=== PATIENT | female | born 1985 | race Caucasian/White ===

== ENCOUNTER 2018-06-14 17:36 | Inpatient (IN) | payer MEDICAID ==
[~2018-06-14] VITALS: Ht 162.6 cm; Wt 86.0 kg
[2018-06-14 17:54] VITALS: Ht 162.6 cm; Wt 86.0 kg
[2018-06-14 17:55] VITALS: BP 132/88; PULSE 113; RESP 20
[2018-06-14] MEDS ORDERED: PREN1TAB13 PO (17:57)
--- NOTE | 2018-06-14 18:01 | TRIAGE ---
OB Triage Datetime Report Generated by CPN: 06/14/2018 18:01 Datetime: 06/14/2018 17:45 Time of Arrival: 06/14/2018 17:30 EGA: 36.5 Arrived By: Ambulatory Arrived From: Home Chief Complaint: SROM AT 1700 Movement: Present Contractions: Regular Contractions: 2-5 Rupture of Membranes: Ruptured Vaginal Bleeding: None Vaginal Discharge: Present Recent Sexual Intercouse: Denies Abdominal Trauma: Not Applicable Patient Complaints: Contractions Time Provider Notified: 06/14/2018 17:45 Provider Notified: DR MEJIA Initial Plan: EFM,CALL DR CORREIA Datetime: 06/14/2018 17:44 Maternal Assessment Level of Consciousness: Fully Conscious DTR's/Clonus: DTRs 2+ Headache: Denies Blurred Vision: No Nausea/Vomiting: Denies RUQ Epigastric Pain: Denies Facial Edema: None Labor Evaluation Frequency: 2-5 Monitor Mode: External Quality: Moderate Pattern: Normal: <= 5 Contractions in 10 Minutes Resting Tone [place]: Relaxed Heart Rate FHR Baseline Rate: 145 Monitor Mode: External US FHR Baseline Changes: No Baseline Change Variability: Moderate 6-25 bpm Accelerations: 15X15 Decelerations: None Category: Category I Pain Assessment Pain Scale: 3 Pain Presence: Intermittent Pain Type: Contraction Pain Location: Abdomen Pain Goal: 4 Vaginal Exam Dilatation (cms): 2.0 Effacement (%): 40 Membrane Status: Ruptured Membranes Rupture Method: Spontaneous Amniotic Fluid Color: Clear Amniotic Fluid Amount: Large Amniotic Fluid Odor: None Vaginal Bleeding: None Cervix, Consistency: Moderate Cervix, Position: Midposition Presentation 'A': Cephalic Datetime: 06/14/2018 17:43 Maternal Assessment Level of Consciousness: Fully Conscious DTR's/Clonus: DTRs 2+; No Clonus Headache: Denies Blurred Vision: No Respiratory Effort: Unlabored; Regular Rhythm; Equal Expansion Breath Sounds, Left: Clear and Equal Breath Sounds, Right: Clear and Equal Nausea/Vomiting: Denies RUQ Epigastric Pain: Denies Facial Edema: None Temperature Route: Axillary Fall Risk Assessment History of Falling: (0) No Secondary Diagnosis: (0) No Ambulatory Aid: (0) Bedrest/Nurse Assist IV Therapy: (0) No Gait: (0) Normal/Bedrest/Immobile Mental Status: (0) Oriented to Own Ability Fall Score: 0 Fall Risk Score Definition: No Risk: No action required
[2018-06-14] MEDS ORDERED: LACTATED RINGER'S 1,000 ML IV SCH (18:45)
[2018-06-14] MEDS ORDERED: MISOPROSTOL 200 MCG TAB PR PRN (19:00)
[2018-06-14] MEDS ORDERED: CARBOPROST 250 MCG INJ IM PRN (19:00)
[2018-06-14] MEDS ORDERED: OXYTOCIN 30 UNITS/LR 500 ML IV SCH ×3 (19:00)
[2018-06-14] MEDS ORDERED: AMPICILLIN 2 GM/NS (PMX) 100 ML IV ONE (19:00)
[2018-06-14] MEDS ORDERED: BUTORPHANOL 1 MG INJ IV PRN (19:00)
[2018-06-14] MEDS ORDERED: BUTORPHANOL 2 MG INJ IV PRN (19:00)
[2018-06-14] MEDS ORDERED: OXYTOCIN 30 UNITS/LR 500 ML IV PRN (19:00)
[2018-06-14] MEDS ORDERED: LIDOCAINE 1% (MPF) 30 ML INJ INJ PRN (19:00)
[2018-06-14] MEDS ORDERED: METHYLERGONOVINE 0.2 MG INJ IM PRN (19:00)
--- NOTE | 2018-06-14 19:05 | HP ---
Date/Time of Note Date/Time of Note DATE: 06/14/18 TIME: 19:00 OB - History Hx of Present Free Text/Dictation 32-year-old female 2 para 1 at 36 weeks and 5 days gestation admitted complaining of a spontaneous rupture of membrane few hours Chief Complaint: Spontaneous rupture of membrane Estimated Due Date: Jul 07, 2018 : 2 Para: 1 Care: Good Care Ultrasounds: Normal mid trimester US Obstetrical Complications: None Medical Complications: None Past Family/Social History * Past Medical, Surgical, Family and Obstetric Histories reviewed from chart. OB Admission Exam Vital Signs Vital Signs Vital Signs Date Temp Pulse Resp B/P (MAP) Pulse Ox O2 O2 Flow FiO2 Time Delivery Rate 06/14/18 98.5 113 20 132/88 Room Air 17:55 (103) Physical Exam HEENT: WNL Heart: Rhythm Normal Lungs: Clear, Equal Abdomen: WNL Extremities: Normal Reflexes: Normal Cervical Dilatation: 2cm Effacement: 50% Station: -2 Membranes: Ruptured Amniotic Fluid: Clear Heart Rate: 140's Accelerations: Accelerations Present Decelerations: No Decelerations Varibility: Marked Contractions on Admission: < 5 Minutes Apart Date/Time Contractions Began: 06/14/2018 1700 Frequency of Contractions: q3=4 min Duration: >50 seconds Intensity: Mild OB Assessment/Plan Reason for admission: rupture of membranes Other Assessment: PSROM at 36.5 weeks Other plan: IV Abs for unknown GBS start Pitocin augmentation of the labor Obtain estimation of weight MANDA AGUILAR MD Jun 14, 2018 19:05
[2018-06-14] MEDS ORDERED: MINERAL OIL LIGHT 10 ML VIAL TOP ONE (22:30)
[2018-06-14] MEDS ORDERED: AMPICILLIN 1 GM/NS (PMX) 50 ML IV SCH (23:00)
--- NOTE | 2018-06-14 23:04 | LDN ---
Date/Time of Note Date/Time of Note DATE: 06/14/18 TIME: 23:00 Delivery Summary Vacuum extraction of a viable over intact perineum Vacuum extraction was performed because of prolonged bradycardic episode Weeks of Gestation 36.5 Assisted Vaginal Delivery: Vacuum Placenta Delivered: Spontaneously, Intact & Complete Meconium: none Episiotomy: No Perineal laceration: 1 Laceration repair: First-degree perineal laceration was repaired in layers using 2-0 chromic on a CT1 needle Anesthesia type: Epidural Estimated blood loss: 300 Sponge & Needle done & correct: Yes All needle counts correct: Yes Any foreign bodies felt in the: No Delivery Information Sex Sex: male Apgars 1 Minute: 8 5 Minute: 9 Suctioning Nose & mouth suctioned at adrián: Yes Delee suction performed: No Umbilical Cord Umbilical cord with: 3 Vessels Cord presentations: nuchal cord Nuchal cord present X: 2 Cord Blood was obtained: Yes Mother & Baby Disposition Disposition Mom & Baby to Maternity; Good: Yes (Mother and baby were recovered in good condition) Mom transferred to: Other (Maternity) Baby to NICU: No MANDA AGUILAR MD Jun 14, 2018 23:04
[2018-06-14] MEDS ORDERED: KETOROLAC 30 MG INJ IV ONE (23:12)
[2018-06-15] MEDS ORDERED: AMPICILLIN 1 GM/NS (PMX) 50 ML IV SCH (01:00)
[2018-06-15] MEDS: LACTATED RINGER'S 1,000 ML IV* SCH ×3 (01:07→22:54)
[2018-06-15 01:25] VITALS: BP 111/71; PULSE 96; RESP 18
[2018-06-15] MEDS ORDERED: DIBUCAINE 1% 30 GM OINT TOP PRN (01:30)
[2018-06-15] MEDS ORDERED: HYDROCODONE/APAP (5/325) TAB PO PRN ×2 (01:30)
[2018-06-15] MEDS ORDERED: OXYTOCIN 30 UNITS/LR 500 ML IV PRN (01:30)
[2018-06-15] MEDS ORDERED: ZOLPIDEM 5 MG TAB PO PRN (01:30)
[2018-06-15] MEDS ORDERED: CARBOPROST 250 MCG INJ IM PRN (01:30)
[2018-06-15] MEDS ORDERED: WITCH HAZEL/GLYCERIN PAD PR PRN (01:30)
[2018-06-15] MEDS ORDERED: BENZOCAINE 20% 56 ML SPRAY TOP PRN (01:30)
[2018-06-15] MEDS ORDERED: METHYLERGONOVINE 0.2 MG INJ IM PRN (01:30)
[2018-06-15] MEDS ORDERED: MISOPROSTOL 200 MCG TAB PR PRN (01:30)
[2018-06-15] MEDS ORDERED: LANOLIN HPA 1 PKT TOP PRN (01:30)
[2018-06-15] MEDS: IBUPROFEN 600 MG TAB PO SCH ×4 (05:45→23:56)
[2018-06-15 08:30] VITALS: BP 113/73; PULSE 89; RESP 16
[2018-06-15] MEDS: MAGNESIUM HYDROXIDE 30ML CUP PO SCH ×2 (08:53→20:52)
[2018-06-15] MEDS: SENNA/DOCUSATE NA (8.6MG/50MG) TAB PO SCH ×2 (08:53→20:52)
[2018-06-15 12:07] VITALS: BP 126/90; PULSE 97; RESP 17
--- NOTE | 2018-06-15 13:32 | DS ---
Date/Time of Note Date/Time of Note home next day or today DATE: 06/15/18 TIME: 13:30 Obstetrical Discharge Record Final Diagnosis Final Diagnosis: delivered Other Final Diagnosis S/P vaginal delivery Vaginal Delivery Obstetrical Delivery: Spontaneous, Laceration, Repaired Condition on Discharge Physical Assessment Last Vitals: see nurses notes Voiding: Yes Bowel Movement: Yes Breast: Soft, non-tender, Filling Fundus: Firm Abdomen and Incision: soft BS + fundus is firm Episiotomy: perineum is healing well and appears clean Calf Tenderness: No Patient Condition: Good MANDA AGUILAR MD Jun 15, 2018 13:32
[2018-06-15] MEDS ORDERED: IBUP-1542 PO (13:34)
--- NOTE | 2018-06-15 13:34 | PD.PPDC ---
CELL TUBER HAND Discharge Instruction Provider Information Physician Information 32 y/o female had vaginal delivery Diagnosis [id number] Final Diagnosis: [id number] S/P vaginal delivery Condition [id number] Patient Condition: [id number] Good Diet [id number] Diet: [id number] Resume Regular Diet Activity/Restrictions [id number] Activity: [id number] Normal Activity May Shower [id number] Restrictions: [id number] Nothing in the Vagina [id number] Return to Work or School: [id number] Aug 04, 2018 Follow-up Follow-up with Physician: 2, 4, Week/Weeks (in clinic) Return to clinic for [id number] OB Instructions: [id number] Breast Tenderness Depression Comment: pelvic est x 6 weeks MANDA AGUILAR MD Jun 15, 2018 13:34
[2018-06-15 16:23] VITALS: BP 110/86; PULSE 96; RESP 17
[2018-06-15 20:00] VITALS: BP 123/81; PULSE 94; RESP 18
[2018-06-16] MEDS: LACTATED RINGER'S 1,000 ML IV* SCH ×2 (01:07→09:07)
[2018-06-16 03:30] VITALS: BP 122/74; PULSE 82; RESP 18
[2018-06-16 04:00] VITALS: BP 122/80; PULSE 78; RESP 18
[2018-06-16] MEDS: IBUPROFEN 600 MG TAB PO SCH ×2 (05:27→12:35)
[2018-06-16 08:30] VITALS: BP 114/81; PULSE 80; RESP 19
[2018-06-16] MEDS ORDERED: VARICELLA VACCINE LIVE/PF 1,350 UNIT/0.5 ML ML SC* ONE (09:00)
[2018-06-16] MEDS ORDERED: MEASLES,MUMPS,RUBELLA VACCINE INJ SC* ONE (09:00)
[2018-06-16] MEDS: SENNA/DOCUSATE NA (8.6MG/50MG) TAB PO SCH (09:00)
[2018-06-16] MEDS ORDERED: DIPHTH/TET/ACEL PERTUSS (ADULT) 0.5 ML VIAL IM* ONE (09:00)
[2018-06-16] MEDS: MAGNESIUM HYDROXIDE 30ML CUP PO SCH (09:00)
== END 2018-06-16 15:40 | disposition home or self-care (01) | DRG 805 ==
LOC: OBT 17:36 → L-D 17:36 → EDBD 17:45 → OBT 17:45 → L-D 17:45 → PP1 06-15 01:03
PROVIDERS: ADMIT Obstetrics & Gynecology; ATTEND Obstetrics & Gynecology
PROC: 10D07Z6 Extraction of Products of Conception, Vacuum, Via Natural or Artificial Opening (ICD-10-PCS; principal; 2018-06-14)
PROC: 0HQ9XZZ Repair Perineum Skin, External Approach (ICD-10-PCS; 2018-06-14)
PROC: 4A1HXCZ Monitoring of Products of Conception, Cardiac Rate, External Approach (ICD-10-PCS; 2018-06-14)
DX: O42.013 Preterm premature rupture of membranes, onset of labor within 24 hours of rupture, third trimester (principal); O60.14X0 Preterm labor third trimester with preterm delivery third trimester, not applicable or unspecified; Z37.0 Single live birth; Z3A.36 36 weeks gestation of pregnancy; O76 Abnormality in fetal heart rate and rhythm complicating labor and delivery; O70.0 First degree perineal laceration during delivery; O69.81X0 Labor and delivery complicated by cord around neck, without compression, not applicable or unspecified
CPT/HCPCS: 76815; 76818; 80307; 81001; 84112; 85025; 85610; 85730; 86592; 86703; 86762; 86850; 86900; 86901; 87086; 87340; 90716; 99464; G0463; J0290; J2590; J7120